=== PATIENT | male | born 1955 | race Caucasian/White ===

== ENCOUNTER 2017-01-30 05:17 | Day surgery (SDC) | payer OTHER ==
[~2017-01-30] VITALS: Ht 180.3 cm; Wt 129.5 kg
[~2017-01-30 05:17] MED LIST: LIPITOR10 MG PO
[2017-01-30 07:05] VITALS: BP 136/82
[2017-01-30 11:10] VITALS: BP 151/90
[2017-01-30 12:45] VITALS: BP 129/75
== END 2017-01-30 12:51 | disposition home or self-care (01) ==
LOC: SDC 05:17
PROC: 00NY0ZZ Release Lumbar Spinal Cord, Open Approach (ICD-10-PCS; principal; 2017-01-30)
DX: M48.06 Spinal stenosis, lumbar region (principal); M47.816 Spondylosis without myelopathy or radiculopathy, lumbar region; Z98.1 Arthrodesis status; M51.36 Other intervertebral disc degeneration, lumbar region; G96.8 Other specified disorders of central nervous system; M79.604 Pain in right leg; M79.605 Pain in left leg; M46.96 Unspecified inflammatory spondylopathy, lumbar region; E66.01 Morbid (severe) obesity due to excess calories; Z68.39 Body mass index [BMI] 39.0-39.9, adult; E78.5 Hyperlipidemia, unspecified; Z83.3 Family history of diabetes mellitus; Z82.49 Family history of ischemic heart disease and other diseases of the circulatory system
CPT/HCPCS: 72020; 76000; J0131; J0330; J1100; J1170; J2405; J2930; J3010; J3370; S0020